=== PATIENT | male | born 1995 | race Caucasian/White ===

== ENCOUNTER → 2020-06-22 | Outpatient (CLI) | payer OTHER ==
--- NOTE | 2020-06-23 11:47 | ECHOF ---
Referral Reason:[id number] Near Syncope MEASUREMENTS -------- HEIGHT: 180.3 cm WEIGHT: 79.4 kg BP: 119/53 RVIDd: 3.6 cm (< 3.3) IVSd: 0.9 cm (0.6 - 1.1) LVIDd: 4.4 cm (3.9 - 5.3) LVPWd: 1.1 cm (0.6 - 1.1) IVSs: 1.6 cm LVIDs: 2.6 cm LVPWs: 1.5 cm LA Diam: 2.9 cm (2.7 - 3.8) Ao Diam: 3.3 cm (2.0 - 3.7) AV Cusp: 2.5 cm (1.5 - 2.6) MV EXCURSION: 23.991 mm (> 18.000) MV EF SLOPE: 115 mm/s (70 - 150) EPSS: 0.4 cm MV E Dillon: 1.19 m/s MV DecT: 182 ms MV A Dillon: 0.97 m/s MV E/A Ratio: 1.22 FINDINGS -------- Sinus rhythm. This was a technically good study. The left ventricular size is normal. Left ventricular wall thickness is normal. Overall left vent ricular systolic function is normal with, an EF between 60 - 65 %. The right ventricle is mildly enlarged. The left atrial size is normal. The right atrium is normal in size. Interatrial and interventricular septum intact. The aortic valve is trileaflet and appears structurally normal. The mitral valve is normal. The tricuspid valve appears structurally normal. There is no pulmonic regurgitation present. The aortic root size is normal. Normal inferior vena cava with normal inspiratory collapse consistent with estimated right atrial pre ssure of 5 mmHg. There is no pericardial effusion. CONCLUSIONS -------- 1. The left ventricular size is normal. 2. Left ventricular wall thickness is normal. 3. Overall left ventricular systolic function is normal with, an EF between 60 - 65 %. 4. The right ventricle is mildly enlarged. 5. The aortic valve is trileaflet and appears structurally normal. 6. There is no pericardial effusion. ROSS CARRIER DRIVER: Arabella Early [facility]
== END | disposition home or self-care (01) ==
LOC: RADECHMAIN 14:59
PROVIDERS: ATTEND Family Medicine
DX: I51.7 Cardiomegaly (principal)
CPT/HCPCS: 93306